=== PATIENT | male | born 1965 | race Caucasian/White ===

== ENCOUNTER 2018-06-09 08:01 | Emergency (ER) | payer BC, SELFPAY ==
[2018-06-09 08:03] VITALS: BP 210/93; PULSE 91; RESP 18; TEMP 36.4; O2SAT 96; BMI 48.7
[2018-06-09 08:08] VITALS: BP 190/105; PULSE 92; RESP 19
--- NOTE | 2018-06-09 08:15 | EKG12_ITS ---
Test Reason : Blood Pressure : / mmHG Vent. Rate : 086 BPM Atrial Rate : 086 BPM P-R Int : 178 ms QRS Dur : 088 ms QT Int : 342 ms P-R-T Axes : 034 042 037 degrees QTc Int : 409 ms Normal sinus rhythm Poor R wave progression Confirmed by GATO RAMIREZ, COLLINS ([id number]), television news video editor ANIA TORIBIO ([id number]) on 06/12/2018 12:50:19 PM Referred By: JAYA Confirmed By:COLLINS HOSKINS MD
--- NOTE | 2018-06-09 08:15 | RAD_ITS ---
STUDY: X-RAY CHEST REASON FOR EXAM: Male, 52 years old. Headache. Chest pressure. TECHNIQUE: Single AP portable view of the chest. # of Images: 1 COMPARISON: None. FINDINGS: There are monitoring devices. The lungs are clear and expanded. There is no demonstrated pleural abnormality. Normal size heart. Normal mediastinum and hillary. Normal visualized pulmonary arteries. Normal visualized aortic arch and descending thoracic aorta. Normal visualized thoracic spine. Normal visualized ribs, clavicles, and shoulders. There is no demonstrated abnormality of the visualized soft tissue structures of the upper abdomen. RAD/Chest 1 View (Portable) IMPRESSION: Normal x-ray examination of the chest. Electronically Signed: Adiel Bautista MD at 9:23 EDT , Service support ,
[2018-06-09] MEDS: Aspirin 81 MG TAB.CHEW 324 MG PO (08:23)
[2018-06-09 08:27] VITALS: BP 191/84; PULSE 89
[2018-06-09 08:34] LABS: Absolute Lymphocyte Count 2.24 X10^3/ul (0.83-4.51); Absolute Neutrophil Count 7.7 X10^3/uL (2.0-7.7); Basophil# 0.02 X10^3/uL; Basophil% 0.2 % (0-1); Eosinophil# 0.27 X10^3/uL; Eosinophils% 2.4 % (0-5); Hematocrit 46.8 % (40-54); Hemoglobin 15.7 g/dl (13.0-16.5); Lymphocyte # 2.24 X10^3/ul (4.0); Lymphocyte % 19.8 % (19-41); Mean Corp Hgb Conc 33.5 g/gl (32-36); Mean Corpuscular Hgb 30.6 pg (27.0-32.0); Mean Corpuscular Volume 91.2 fL (80-94); Mean Platelet Vol. 12.2 fl (6.2-12.0); Monocyte% 9.7 % (0-10); Neutrophil # 7.67 X10^3/uL (2.7-7.7); Neutrophil % 67.6 % (47-70); Platelet Count 198 K/mm3 (150-450); RBC Distribution Width CV 13.3 % (11.6-14.6); RBC Distribution Width SD 44.2 fl (35.1-43.9); Red Blood Count 5.13 M/mm3 (4.6-6.2); White Blood Count 11.3 K/mm3 (4.4-11.0)
[2018-06-09 08:36] LABS: POSITIVE COUNT NO; POSITIVE DIFFERENTIAL NO; POSITIVE MORPHOLOGY NO
--- NOTE | 2018-06-09 08:41 | ED.DCSUM_ITS ---
- ER Visit Summary Date of Service: 06/09/18 Chief Complaint: Chest pain and headache History of Present Illness: The patient is a 52 M who presents with chest pain and headache that began last night. Patient states pain feels more like a light pressure over his substernal area. Patient states it has been constant since last night. Patient denies any radiation of the pain. Patient states nothing seems to make it better or worse. Patient states his headache is over the frontal and occipital areas. Patient admits to some blurred vision. Patient denies any paresthesias or weakness. Patient denies any nausea or vomiting. Patient does admit to a slight cough but denies any sputum production. Patient denies any shortness of breath. Patient denies any fevers or chills. Patient is cardiac risk factors include hypertension, hypercholesterolemia, and a family history of a parent and brother who have coronary artery disease at a young age. Patient denies any recent travel. Patient denies any history of DVT or cancer. Physical Examination: Vital signs are stable except for an elevated blood pressure of 210/93. Patient is in no acute distress. Patient is afebrile. Oral mucosa is pink and moist. Neck is supple. Trachea is midline. There is no JVD noted. Heart was regular rate and rhythm. There are no murmurs auscultated. Lungs are clear and equal bilaterally. There is good respiratory effort noted. Abdomen is soft. Bowel sounds are normal. There is no tenderness. There is no guarding or rebound noted. Cranial nerves II through XII are intact. There are no focal motor or sensory deficits noted. The remaining physical exam is within normal limits. Test Results: EKG showed normal sinus rhythm with a rate of 86. There are no acute ST or T wave changes. There are no prior EKGs available for comparison. CBC, basic metabolic profile, and troponin were obtained and were all essentially within normal limits. Chest x-ray does not show any acute cardiopulmonary process. Emergency Department Course and Treatment: Patient was given aspirin and sublingual nitroglycerin here. Patient states his chest pain and headache have improved. Patient's blood pressure improved. Patient states he did not take his blood pressure medications this morning. His chest pain and headache may be related to his blood pressure. Patient has a HEART score of 3. Patient has a QUINTON score of 2. Patient was advised he is at low risk for acute cardiac event. Patient was instructed to follow-up with his primary care physician in 3-5 days for further evaluation. Patient understood and was agreeable with the plan. All questions were answered. Disposition: Discharge home Impression: Chest pain, hypertension This note was generated with [employer] dictation software. It may contain incorrect words, spelling, and punctuation that were not noted in review of the chart prior to signing ED Disposition - Plan for ED Patient: Disposition: Home or Assisted Living Chief Complaint: Chest Pain Diagnosis: Chest pain, Hypertension Instructions: ED Chest Pain Atypical Unkn Cause Referrals: Town Doctor,Out of [NON-STAFF] -
[2018-06-09 08:47] LABS: Anion Gap 6 (5-15); BUN 19 mg/dL (7-18); BUN/Creat Ratio 20.9 RATIO (10-20); Calcium,Total 8.8 mg/dL (8.5-10.1); Chloride 107 mmol/L (98-107); Creatinine, Serum 0.91 mg/dL (0.70-1.30); EST Glomerular Filtration Rate 93 mL/min (>60); Est Glom Filt Rate - Afr Amer 113 mL/min (>60); Estimated Creatinine Clearance 98.05 ml/min; Glucose 106 mg/dL (74-106); Potassium 5.2 mmol/L (3.5-5.1); Sodium Level 140 mmol/L (136-145)
[2018-06-09 09:25] VITALS: BP 167/97; PULSE 73; RESP 14
[2018-06-09 09:56] VITALS: BP 174/97; PULSE 71; RESP 16; O2SAT 95
== END 2018-06-09 09:57 | disposition home or self-care (01) ==
PROVIDERS: Emergency Provider Emergency Medicine
DX: R07.9 Chest pain, unspecified (principal); I10 Essential (primary) hypertension; E66.9 Obesity, unspecified; M54.2 Cervicalgia; E78.00 Pure hypercholesterolemia, unspecified; Z82.49 Family history of ischemic heart disease and other diseases of the circulatory system
CPT/HCPCS: 71045; 80048; 84484; 85025; 93005; 99285; A4216

== ENCOUNTER 2018-09-17 09:30 | Emergency (ER) | payer BC, SELFPAY ==
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
[2018-09-17 11:28] LABS: Absolute Lymphocyte Count 1.53 X10^3/ul (0.83-4.51); Absolute Neutrophil Count 5.5 X10^3/uL (2.0-7.7); Basophil# 0.02 X10^3/uL; Basophil% 0.2 % (0-1); Eosinophil# 0.18 X10^3/uL; Eosinophils% 2.2 % (0-5); Hematocrit 43.7 % (40-54); Hemoglobin 14.8 g/dl (13.0-16.5); Lymphocyte # 1.53 X10^3/ul (4.0); Lymphocyte % 18.4 % (19-41); Mean Corp Hgb Conc 33.9 g/gl (32-36); Mean Corpuscular Hgb 31.2 pg (27.0-32.0); Mean Platelet Vol. 11.6 fl (6.2-12.0); Monocyte# 1.02 X10^3/uL; Monocyte% 12.3 % (0-10); Neutrophil # 5.54 X10^3/uL (2.7-7.7); Neutrophil % 66.7 % (47-70); POSITIVE COUNT NO; POSITIVE DIFFERENTIAL NO; POSITIVE MORPHOLOGY NO; Platelet Count 177 K/mm3 (150-450); RBC Distribution Width CV 13.6 % (11.6-14.6); Red Blood Count 4.75 M/mm3 (4.6-6.2); White Blood Count 8.3 K/mm3 (4.4-11.0)
[2018-09-17 11:34] LABS: ALB/GLOB Ratio 0.9 RATIO (0.9-2.4); AST(SGOT) 27 U/L (15-37); Albumin, Serum 3.2 g/dL (3.2-5.0); BUN 14 mg/dL (7-18); BUN/Creat Ratio 17.1 RATIO (10-20); Calcium,Total 8.3 mg/dL (8.5-10.1); Creatinine, Serum 0.82 mg/dL (0.70-1.30); EST Glomerular Filtration Rate 105 mL/min (>60); Est Glom Filt Rate - Afr Amer 127 mL/min (>60); Globulin 3.7 g/dL (2.2-4.2); Glucose 108 mg/dL (74-106); Protein, Total 6.9 g/dL (6.4-8.2)
[2018-09-17 11:35] LABS: Alanine Aminotransfer ALT/SGPT 46 U/L (16-61); Alkaline Phosphatase 74 U/L (45-117); Anion Gap 10 (5-15); Chloride 104 mmol/L (98-107); Potassium 4.1 mmol/L (3.5-5.1); Sodium Level 140 mmol/L (136-145)
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
--- NOTE | 2018-09-17 14:28 | EKG12_ITS ---
Test Reason : Blood Pressure : / mmHG Vent. Rate : 074 BPM Atrial Rate : 074 BPM P-R Int : 174 ms QRS Dur : 098 ms QT Int : 372 ms P-R-T Axes : 059 052 023 degrees QTc Int : 412 ms Normal sinus rhythm Normal ECG Confirmed by LISA NIÑO MD ([id number]), scientific editor NEYMAR BURCH ([id number]) on 09/19/2018 2:19:20 PM Referred By: YANDY Confirmed By:LISA NIÑO MD
== END 2018-09-17 12:45 | disposition home or self-care (01) ==
LOC: ED 11:10
PROVIDERS: Emergency Provider Emergency Medicine
DX: S33.5XXA Sprain of ligaments of lumbar spine, initial encounter (principal); V49.88XA Car occupant (driver) (passenger) injured in other specified transport accidents, initial encounter; S20.219A Contusion of unspecified front wall of thorax, initial encounter; E11.9 Type 2 diabetes mellitus without complications; I10 Essential (primary) hypertension; E78.00 Pure hypercholesterolemia, unspecified
CPT/HCPCS: 71046; 74177; 80053; 84484; 85025; 93005; 96361; 96374; 96375; 99285; J7030; Q9967; A4216; J2405

== ENCOUNTER 2019-06-19 07:41 | Emergency (ER) | payer BC, SELFPAY ==
[2019-06-19 07:42] VITALS: BP 162/110; PULSE 80; RESP 22; TEMP 36.7; O2SAT 96; BMI 51.5
--- NOTE | 2019-06-19 07:57 | ED.VIS.GEN ---
History of Present Illness Chief Complaint: Back Informant: Patient Onset: Yesterday Current Severity: Moderate Maximum Severity: Moderate Narrative: Patient presents with lumbar pain for the past few days no known injury but he has had intermittent pain like this in the past. He has no radiation to his lower extremities. He has no bowel or bladder compromise or symptoms of urinary retention. He does have bilateral foot drop which is chronic from [place] spotted fever. He denies any fever chills or any kind of trauma. Past Medical History - Allergies and Home Meds Allergies/Adverse Reactions: Allergies No Known Allergies Allergy (Verified 06/19/19 07:42) Primary Care Physician: Care Physician,No Primary [Primary Care Provider] - Past Medical History: - - Hypertension Smoking Status: Never smoker Review of Systems All systems negative except as indicated General: Denies: Fever Cardiovascular: Denies: Chest pain, Palpitations Respiratory: Denies: Dyspnea, Cough Gastrointestinal: Denies: Abdominal pain, Nausea, Vomiting Genitourinary: Denies: Dysuria, Hematuria Musculoskeletal: Reports: Back pain. Denies: Myalgias Skin: Reports: Rash Neurological: Reports: Headache. Denies: Weakness, Parasthesia Psych: Denies: Depression Endocrine: Denies: Polyuria Hematologic: Denies: Easy bruising Physical Exam Vital Signs/Narrative: Vital Signs Temp Pulse Resp BP Pulse Ox 06/19/19 07:42 98.1 F 80 22 H 162/110 H 96 General: Well nourished, Well developed, Obese ENT: Moist mucous membranes Cardiovascular: Regular rate, Regular rhythm Respiratory: No distress, CTA bilaterally Abdomen: Soft, Nontender Back: - - There is midline and paraspinal lower lumbar tenderness. Extremities: Nontender, No edema, Tenderness Skin: Normal color Neurological: - - 1+ bilateral patellar reflexes, he does have bilateral foot drop which is chronic. He is able to ambulate. He has normal strength and sensation Diagnostic/Tx/Re-eval - Medical Decision Making Patient has a lumbar strain, we will treat him as such, he has an abnormal physical exam however this is chronic with bilateral foot drop from [place] spotted fever. He tells me this has not changed. He has no other neurological symptoms, he does not meet criteria for emergent imaging. ED Disposition - Plan for ED Patient: Disposition: Home or Assisted Living Instructions: Back Sprain/Strain Prescriptions: Hydrocodone Bitart/Apap 5-325 [[place] 5MG-325MG] 1 tab PO Q4H PRN PRN 2 Days #12 tab PRN Reason: Pain Prescription Printed Tizanidine HCl 4 mg PO TID #20 tab Prescription Printed Referrals: Care Physician,No Primary [Primary Care Provider] - 3-5 Days
[2019-06-19] MEDS: Triamcinolone Acetonide 40 MG/ML Vial IM (08:16)
[2019-06-19] MEDS: Ketorolac 30 MG/ML Syringe IM (08:16)
[2019-06-19 08:19] VITALS: BP 134/62; PULSE 71; RESP 15; O2SAT 98
== END 2019-06-19 08:42 | disposition home or self-care (01) ==
LOC: ED 08:04
PROVIDERS: Emergency Provider Emergency Medicine; Family Provider Family Medicine; PCP Family Medicine
DX: S33.5XXA Sprain of ligaments of lumbar spine, initial encounter (principal); X58.XXXA Exposure to other specified factors, initial encounter; Y93.9 Activity, unspecified; Y92.89 Other specified places as the place of occurrence of the external cause; Y99.9 Unspecified external cause status; M21.371 Foot drop, right foot; M21.372 Foot drop, left foot; I10 Essential (primary) hypertension
CPT/HCPCS: 96372; 99282

== ENCOUNTER 2019-08-20 05:48 | Day surgery (SDC) | payer BC, SELFPAY ==
--- NOTE | 2019-08-18 09:54 | HP.PCM_ITS ---
History and Physical Date of Admission: 08/20/19 HISTORY AND PHYSICAL ? Miguel Kothari 1965 ? REFERRING PHYSICIAN: ??Shahid Cook ? CHIEF COMPLAINT: ??colon consult ? HPI: The patient is a 53 year old male referred for endoscopy. ?Miguel notes no colon complaints currently.??States maybe once a year has noted small amount of bright red blood on toilet paper with wiping. ?He had a prior colonoscopy 10-15 years ago performed by Dr. Pedro in [place] for stomach issues and rectal bleeding, report is not available for review. ?Patient states there were no concerning findings from that procedure. ??Patient denies any change in bowel habits, weight changes, black tarry stools or abdominal pain. ?Patient thinks his mother has had colon polyps, but denies a family history of colon cancer. ? The patient notes no upper GI complaints?currently. ? Patient's past medical history is significant for morbid obesity, obstructive sleep apnea for which he uses a CPAP, hypertension and hyperlipidemia. ?Past surgical history is significant for multiple orthopedic surgeries including a right total hip replacement. ?He follows with Dr. Cook in primary care. ? ? ? PAST MEDICAL HISTORY PAST MEDICAL HISTORY Diagnosis Date ? Acquired bilateral foot drop ? ? from [facility] ? Gout ? ? Hyperlipidemia ? ? Hypertension ? ? Morbid obesity (HCC) ? ? CLAUDIA on CPAP ? ? Osteoarthritis of hip ? ? s/p replacement ? Prediabetes ? ? [place] spotted fever 1976 ? ? PAST SURGICAL HISTORY PAST SURGICAL HISTORY Procedure Laterality Date ? CARPAL TUNNEL Left 01/2019 ? COLONOSCOPY ? ? ? PAST SURGICAL HISTORY OF Left ? ? thumb tendon repair ? PAST SURGICAL HISTORY OF ? 10/2018 ? nadya finger ? PAST SURGICAL HISTORY OF Left 01/2019 ? ulnar nerve decompression ? REPAIR BICEPS TENDON RUPTURE Bilateral ? ? ROTATOR CUFF REPAIR Right ? ? TOTAL HIP JOINT REPLACEMENT Right 2013 ? ? CURRENT MEDICATIONS Current Outpatient Medications Medication Sig ? allopurinol (ZYLOPRIM) 100 mg tablet Take 2 tablets by mouth once daily. ? metFORMIN (GLUCOPHAGE) 500 mg tablet Take 1 tablet by mouth daily with breakfast. . ? pravastatin (PRAVACHOL) 20 mg tablet Take 1 tablet by mouth once daily. ? Hydrochlorothiazide 12.5 mg capsule Take 1 capsule by mouth once daily. ? lisinopril (ZESTRIL, PRINIVIL) 40 mg tablet Take 1 tablet by mouth once daily. ? metoprolol succinate ER (TOPROL XL) 100 mg Tb24 Take 1 tablet by mouth once daily. ? allopurinol (ZYLOPRIM) 300 mg tablet Take 1 tablet by mouth once daily. ? mv-mins/folic/lycopene/ginkgo (ONE-A-DAY MEN 50 PLUS, GINKGO, ORAL) Take 1 tablet by mouth once daily. ? aspirin 325 mg tablet Take 325 mg by mouth once daily. ? ? Compression Knee Highs Zippered KNEE HIGH COMPRESSION STOCKINGS 20-30 MM. ?DX: EDEMA ? CPAP daily at bedtime. ? No current facility-administered medications for this visit.? ? ALLERGIES:?Patient has no known allergies. ? PERSONAL HISTORY:? SOCIAL HISTORY Social History ? Tobacco Use ? Smoking status: Never Smoker ? Smokeless tobacco: Never Used Substance Use Topics ? Alcohol use: Yes ? ? Alcohol/week: 25.0 - 30.0 standard drinks ? ? Types: 10 - 12 Cans of Beer (12oz) per week ? Drug use: No ? FAMILY HISTORY:? FAMILY HISTORY FAMILY HISTORY Problem Relation Age of Onset ? Heart Mother ?a fib, valve replacement ? other (colon polyps) Mother ? ? COPD Father ? ? Heart Brother ?valve replacement ? Heart Maternal Grandmother ? ? Heart Maternal Grandfather ? ? COPD Paternal Aunt ? ? REVIEW OF SYMPTOMS: ??The review of systems data was entered by the nurse and reviewed by me ? Nursing Notes: Desmond Buchanan ?07/11/2019 ?3:47 PM ?Signed REVIEW OF SYSTEMS: ?General:???The patient denies fatigue, denies weight loss, denies weight gain, denies feeling hot, and denies feelings of cold. ?Eyes: ?The patient denies glaucoma, denies eye injury/surgery, wears glasses or contacts. ?Ear/Nose/Throat: ?The patient denies allergies, denies hayfever, denies ear infections, and denies bloody noses. ?Cardiovascular: ?The patient denies chest pain, denies heart disease, NOTES high blood pressure,denies cardiac stent, denies prior heart attack, denies irregular heart beat, NOTES high cholesterol, ?NOTES poor circulation, NOTES heart failure, other cardiac issues, denies claudication, denies cold feet, denies peripheral arterial stent. ?Respiratory: ?The patient denies tuberculosis, denies pneumonia, denies frequent cough, denies pulmonary embolism, denies shortness of breath, and denies coughing up blood. ?Gastrointestinal: ?The patient denies difficulty swallowing, denies acid reflux, denies ulcers, denies vomiting, denies jaundice/hepatitis, denies gallbladder problems, denies black or tarry stools, denies hemorrhoids, NOTES bleeding from rectum, denies diverticulitis, denies constipation, denies diarrhea, denies loss of stool control, and denies hernias. ?Kidney/Bladder: ?The patient denies kidney stones, denies urine infections, and denies bloody urine. ?Skin: ?The patient denies a history of skin cancer, denies bleeding/changing moles, and denies a history of skin rash. ?Neurologic: ?The patient denies a history of epilepsy/convulsions, denies headaches, denies head/spinal injuries, and denies stroke/TIA. ?Psychiatric: ?The patient denies psychiatric medications, denies depression, and denies voices, denies substance abuse. ?Endocrine: ?The patient denies thyroid disorders, denies diabetes, and denies hormonal problems. ?Hematologic: ?The patient denies a history of bruising, denies bleeding, and denies anemia, denies blood clots. ?Infections: ?The patient denies a history of measles and mumps, denies rheumatic fever, and denies sexually transmitted diseases. ?Musculoskeletal: ?The patient NOTES back pain/injury, denies back problems, denies sciatica, NOTES knee/foot trouble, NOTES arthritis, or NOTES gout. ? ? When was patient's last Mammogram screening? N/A ? ?Last Colonoscopy: ?JOSSIE ? Desmond Buchanan? I have confirmed and edited as necessary, the PFSH and ROS obtained by others. ? ? PHYSICAL EXAMINATION: ? General: ?The patient is 53 year old male, well nourished, well hydrated in no acute distress. ?The patient is oriented to time, place, and person. ? VITALS:?Blood pressure 136/80, pulse 81, temperature 36.3 ?C (97.4 ?F), temperature source Temporal Artery, resp. rate 18, height 180.3 cm (5' 11), weight (!) 168.7 kg (372 lb), SpO2 94 %.?Body mass index is 51.88 kg/m?.? ? HEENT: ?Normal cephalic, ataumatic, pupils are equally round, sclera are anicteric, mucous membranes are moist, oropharynx is clear. ?Neck has no masses, asymmetry or lymphadenopathy. ? ? Respiratory: ?Clear to auscultation and percussion. ?Normal respiratory excursion and pattern. ? Cardiac: ?Examination is regular rate and rhythm. ?Normal S1/S2 ? Abdominal exam: ?Soft, nontender, ?with no palpable masses. ?No hepatosplenomegaly. ?No palpable hernias. ? Extremities: ?no clubbing, cyanosis or edema. ?No adenopathy. ? LABORATORY VALUES: As Noted ? RADIOLOGIC STUDIES: ?As Noted ? ? Assessment ? IMPRESSION:?encounter for screening colonoscopy ? PLAN: ?I have reviewed my findings with the surgeon. ?Will plan for lower?endoscopy. ??We discussed the risks and benefits of the planned endoscopy. ?I have informed the patient that complications can occur including failure to complete the endoscopy and perforation. ?The patient had the opportunity to ask questions concerning the planned endoscopy. ?My staff has also explained the procedure to the patient in understandable terms and has given the patient printed material concerning the procedure. ?The patient freely consents to surgery. ? I plan to use?Golytely?bowel preparation ? We will plan for Monitored Anesthetic Care. ? ? Diagnoses:?(Z12.11) Encounter for screening for malignant neoplasm of colon ?(primary encounter diagnosis) (G47.33, ?Z99.89) CLAUDIA on CPAP (E66.01) Morbid obesity (HCC) ? ? Antonina Colvin PA-C
[2019-08-20] VITALS (7 sets, daily range): BP systolic 92–142; BP diastolic 30–84; PULSE 72–83; RESP 16–18; TEMP 36.7–37; O2SAT 94–96; BMI 54.4
[2019-08-20] MEDS: Lactated Ringers 1,000 ML 100 ML IV (06:33)
[2019-08-20 06:51] LABS: Bedside Glucose 147 mg/dL (70-110)
--- NOTE | 2019-08-20 07:28 | OP.COLON_ITS ---
Patient Name: Miguel Kothari Procedure Date: 08/20/2019 6:59 AM Date of : 1965 Age: 53 Procedure: Colonoscopy Indications: Screening for colorectal malignant neoplasm Providers: Carlton Gonzalez MD Referring MD: Jason Cook Medicines: Monitored Anesthesia Care Patient Profile: This is a 53 year old male. Refer to note in patient chart for documentation of history and physical. Last Colonoscopy: 10 years ago. Complications: No immediate complications. Procedure: Pre-Anesthesia Assessment: - Prior to the procedure, a History and Physical was performed, and patient medications and allergies were reviewed. The patient is competent. The risks and benefits of the procedure and the sedation options and risks were discussed with the patient. All questions were answered and informed consent was obtained. Patient identification and proposed procedure were verified by the physician, the nurse and the assistant sales center manager in the procedure room. Mental Status Examination: alert and oriented. Airway Examination: normal oropharyngeal airway and neck mobility. Respiratory Examination: clear to auscultation. CV Examination: normal. Prophylactic Antibiotics: The patient does not require prophylactic antibiotics. Prior Anticoagulants: The patient has taken no previous anticoagulant or antiplatelet agents. ASA Grade Assessment: III - A patient with severe systemic disease. After reviewing the risks and benefits, the patient was deemed in satisfactory condition to undergo the procedure. The anesthesia plan was to use moderate sedation / analgesia (conscious sedation). Immediately prior to administration of medications, the patient was re-assessed for adequacy to receive sedatives. The heart rate, respiratory rate, oxygen saturations, blood pressure, adequacy of pulmonary ventilation, and response to care were monitored throughout the procedure. The physical status of the patient was re-assessed after the procedure. After I obtained informed consent, the scope was passed under direct vision. Throughout the procedure, the patient's blood pressure, pulse, and oxygen saturations were monitored continuously. The adult colonoscope was introduced through the anus and advanced to the cecum, identified by the appendiceal orifice, ileocecal valve and palpation. The colonoscopy was performed without difficulty. The patient tolerated the procedure well. The quality of the bowel preparation was good. Scope In: 7:12:11 AM Scope Withdrawal Time 0 hours 7 minutes 11 seconds Scope Out: 7:22:43 AM Total Procedure Duration Time 0 hours 10 minutes 32 seconds Findings: The perianal and digital rectal examinations were normal. The entire examined colon appeared normal on direct and retroflexion views. Impression: - The entire examined colon is normal on direct and retroflexion views. - No specimens collected. Recommendation: - Discharge patient to home. - Resume previous diet. - Continue present medications. - Repeat colonoscopy in 10 years for screening purposes. Procedure Code(s): --- Professional --- 71762, Colonoscopy, flexible; diagnostic, including collection of specimen(s) by brushing or washing, when performed (separate procedure) CPT copyright 2017 [employer]. All rights reserved. The codes documented in this report are preliminary and upon mechanical service technician review may be revised to meet current compliance requirements. Carlton Gonzalez MD 08/20/2019 7:28:24 AM This report has been signed electronically. Number of Addenda: 0 Note Initiated On: 08/20/2019 6:59 AM
== END 2019-08-20 09:07 | disposition home or self-care (01) ==
LOC: EN 05:48 → AC 05:49
PROVIDERS: Family Provider Family Medicine; PCP Family Medicine; Referring Provider Family Medicine; Visit Provider Surgery
PROC: 0DJD8ZZ Inspection of Lower Intestinal Tract, Via Natural or Artificial Opening Endoscopic (ICD-10-PCS; CPT 45378; principal; 2019-08-20 06:55)
DX: Z12.11 Encounter for screening for malignant neoplasm of colon (principal); I10 Essential (primary) hypertension; G47.33 Obstructive sleep apnea (adult) (pediatric); E66.01 Morbid (severe) obesity due to excess calories; R73.03 Prediabetes; E78.5 Hyperlipidemia, unspecified; Z68.43 Body mass index [BMI] 50.0-59.9, adult; Z79.84 Long term (current) use of oral hypoglycemic drugs; Z79.899 Other long term (current) drug therapy
CPT/HCPCS: 45378; 82962; J7120